=== PATIENT | female | born 1960 | race Caucasian/White ===

== ENCOUNTER 2017-05-15 20:06 | Emergency (ER) | payer OTHER ==
[2017-05-15] MEDS ORDERED: Bacitracin Oint 1 GM U/D Packet TOP ONE (20:36)
--- NOTE | 2017-05-15 20:37 | EDM.PDOC ---
ED HPI GENERAL MEDICAL PROBLEM - General Chief Complaint: Laceration Stated Complaint: CUT FINGER Time Seen by Provider: 05/15/17 20:36 Source of Information: Reports: Patient History Limitations: Reports: No Limitations - History of Present Illness INITIAL COMMENTS - FREE TEXT/NARRATIVE: pt was washing a glass and it broke. She has a 1/2inch flap type laceration in the middle finger near the knuckle. Onset: Today, Sudden Duration: Hour(s): Location: Reports: Upper Extremity, Right Associated Symptoms: Reports: No Other Symptoms right middle finger Pain Score (Numeric/FACES): 3 - Related Data Allergies Allergy/AdvReac Type Severity Reaction Status Date / Time aspirin Allergy Hives Verified 05/15/17 20:45 Home Meds: Home Meds NK [No Known Home Meds] 05/15/17 [History] ED ROS GENERAL - Review of Systems Review Of Systems: See Below Constitutional: Reports: No Symptoms HEENT: Reports: No Symptoms Respiratory: Reports: No Symptoms Cardiovascular: Reports: No Symptoms Endocrine: Reports: No Symptoms GI/Abdominal: Reports: No Symptoms : Reports: No Symptoms Skin: Reports: Other (laceration of finger. ) Neurological: Reports: No Symptoms ED EXAM, SKIN/RASH Exam: See Below Text/Narrative:: pt arrived with a laceration to rt middle finger. Exam Limited By: No Limitations General Appearance: Alert Extremities: Other ( Pt has a 1/2 ih laceration near the knuckle of the middle finger of the rt hand. ) Neurological: Alert, Oriented, Normal Cognition Course - Vital Signs Last Recorded V/S: Last Vital Signs Temp 35.7 C 05/15/17 20:53 Pulse 62 05/15/17 20:53 Resp 16 05/15/17 20:53 BP 148/72 H 05/15/17 20:53 Pulse Ox 99 05/15/17 20:53 - Orders/Labs/Meds Meds: Medications Discontinued Medications Generic Name Dose Route Start Last Admin Trade Name Freq PRN Reason Stop Dose Admin Bacitracin 1 dose 05/15/17 20:36 05/15/17 21:02 Bacitracin Oint 1 Gm TOP 05/15/17 20:37 1 dose ONETIME ONE Administration Lidocaine HCl 5 ml 05/15/17 20:35 05/15/17 21:02 Xylocaine-Mpf 1% INJECT 05/15/17 20:36 5 ml ONETIME ONE Administration - Re-Assessments/Exams Free Text/Narrative Re-Assessment/Exam: 05/15/17 21:47 area was cleansed well with saline. It was infiltrated with lidocaine. The wound was closed with 5-0 prolene. It was dress with bacatracin. Departure - Departure Time of Disposition: 21:41 Disposition: Home, Self-Care 01 Condition: Fair Clinical Impression: Laceration - Discharge Information Referrals: PCP,None [Primary Care Provider] - Forms: ED Department Discharge Care Plan Goals: keep dry, no further ointments. sr in 7-8 days, keep dry.
== END 2017-05-15 22:06 | disposition home or self-care (01) ==
LOC: JP.ED 20:06
DX: S61.212A Laceration without foreign body of right middle finger without damage to nail, initial encounter (principal); Z88.6 Allergy status to analgesic agent; W25.XXXA Contact with sharp glass, initial encounter
CPT/HCPCS: 12001; 99283-25

== ENCOUNTER 2017-05-22 20:45 | Emergency (ER) | payer OTHER ==
--- NOTE | 2017-05-22 21:03 | EDM.PDOC ---
ED HPI GENERAL MEDICAL PROBLEM - General Chief Complaint: General Stated Complaint: REMOVE STITCHES Time Seen by Provider: 05/22/17 21:00 Source of Information: Reports: Patient History Limitations: Reports: No Limitations - History of Present Illness INITIAL COMMENTS - FREE TEXT/NARRATIVE: 56-year-old female who had sutures placed in her right ring finger 7 days ago, she is here for suture removal. She's had no difficulty with a healing, no drainage or redness. 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: Oncologic (Cancer) History: Reports: Malignant Melanoma Dermatologic History: Reports: Melanoma, Other (See Below) Other Dermatologic History: back of right leg - Infectious Disease History Infectious Disease History: Reports: Chicken Pox - Past Surgical History Musculoskeletal Surgical History: Reports: Arthroscopic Procedure Dermatological Surgical History: Reports: Skin Biopsy Social & Family History - Tobacco Use Smoking Status *Q: Never Smoker - Caffeine Use Caffeine Use: Reports: Coffee - Recreational Drug Use Recreational Drug Use: No ED ROS GENERAL - Review of Systems Review Of Systems: See Below Constitutional: Denies: Fever Respiratory: Denies: Shortness of Breath Skin: Denies: Erythema ED EXAM, GENERAL - Physical Exam Exam: See Below Exam Limited By: No Limitations General Appearance: Alert, No Apparent Distress Respiratory/Chest: No Respiratory Distress Extremities: Other (There is several sutures in the lateral aspect of the ring finger on the right hand. The laceration appears to have healed nicely and sutures are ready for removal) Course - Vital Signs Last Recorded V/S: Last Vital Signs Temp 96.0 F 05/22/17 21:02 Pulse 67 05/22/17 21:02 Resp 16 05/22/17 21:02 BP 147/69 H 05/22/17 21:02 Pulse Ox 98 05/22/17 21:02 - Re-Assessments/Exams Free Text/Narrative Re-Assessment/Exam: 05/22/17 21:03 Sutures were removed by nursing. She can recheck if she feels things are worsening. Departure - Departure Time of Disposition: 21:28 Disposition: Home, Self-Care 01 Condition: Good Clinical Impression: Visit for suture removal - Discharge Information Instructions: Suture Removal, Care After Referrals: PCP,None [Primary Care Provider] - Forms: ED Department Discharge Care Plan Goals: Keep wound covered while healing. Return if concerns of infection or not healing satisfactorily.
== END 2017-05-22 21:29 | disposition home or self-care (01) ==
LOC: JP.ED 20:45 → JP.EDOUT 20:45
DX: S61.214D Laceration without foreign body of right ring finger without damage to nail, subsequent encounter (principal); Z88.6 Allergy status to analgesic agent; X58.XXXD Exposure to other specified factors, subsequent encounter
CPT/HCPCS: 99282